=== PATIENT | female | born 1985 ===

== ENCOUNTER 2018-10-08 05:34 | Inpatient (IN) | payer OTHER ==
[~2018-10-08] VITALS: Ht 167.6 cm; Wt 95.3 kg
[2018-10-08] MEDS ORDERED: PRENATAL TABLE1 EAC2 PO (11:53)
== END 2018-10-10 12:57 | DRG 768 ==
LOC: OB/GYN 05:34 → LDR 05:34 → OB/GYN 15:57
PROC: 10E0XZZ Delivery of Products of Conception, External Approach (ICD-10-PCS; principal; 2018-10-08)
PROC: 0DQR0ZZ Repair Anal Sphincter, Open Approach (ICD-10-PCS; 2018-10-08)
PROC: 4A1HXCZ Monitoring of Products of Conception, Cardiac Rate, External Approach (ICD-10-PCS; 2018-10-08)
PROC: 0W8NXZZ Division of Female Perineum, External Approach (ICD-10-PCS; 2018-10-08)
PROC: 4A033R1 Measurement of Arterial Saturation, Peripheral, Percutaneous Approach (ICD-10-PCS; 2018-10-08)
DX: O70.20 Third degree perineal laceration during delivery, unspecified (principal); Z37.0 Single live birth; Z3A.39 39 weeks gestation of pregnancy